=== PATIENT | male | born 1950 | race Caucasian/White ===

== ENCOUNTER → 2023-03-06 | Outpatient (CLI) | payer MEDICARE, OTHER, SELFPAY ==
--- NOTE | 2023-03-06 | PROSBIL_PTH ---
PATIENT: EVELIO WHELAN LOC: [facility] U#:[id number] AGE/SX: 73/M ROOM: RE03/06/[address]: Dr. Jaydon Garcia MD : 1950 BED: DIS: 03/06/2023 SPEC #: [id number] RECD: 03/06/23 15:00 STATUS: LISA GREENE #: [id number] LISA: 03/06/23 00:[address]: Jaydon Garcia DEPT: SURGICAL PATHOLOGY RECD BY: Richi Radford ENTERED: 03/07/23 08:54 SP TYPE: PROST BX MOON DR: Dr. Evelio Jovel MD [facility] Tissues: A - PROSTATE RIGHT B - PROSTATE RIGHT C - PROSTATE RIGHT D - PROSTATE LEFT E - PROSTATE LEFT F - PROSTATE LEFT Procedures: PROSTATE BX HEADER OPERATION: Prostate biopsy PRE-OP DIAGNOSIS: Elevated PSA TISSUE SUBMITTED: A - Right apex, B - Right mid, C - Right base, D - Left apex, E - Left mid, F - Left base MICROSCOPIC DIAGNOSIS A. Right prostate, apex, core biopsy: Prostatic adenocarcinoma. [place] grade: 4+4=8 Number of cores involved: 1/1 Proportion of tissue involved: ~75% Perineural invasion: Not identified. Greatest tumor length: 0.7 cm B. Right prostate, mid, core biopsy: Prostatic adenocarcinoma. [place] grade: 5+4=9 Number of cores involved: 2/2 Proportion of tissue involved: >95% Perineural invasion: Not identified. Greatest tumor length: 0.6 cm See comment. C. Right prostate, base, core biopsy: Prostatic adenocarcinoma. [place] grade: 4+4=8 Number of cores involved: 1/2 Proportion of tissue involved: ~10% Perineural invasion: Not identified. Greatest tumor length: 0.2 cm Focal high-grade prostatic intraepithelial neoplasia (HGPIN). See comment. D. Left prostate, apex, core biopsy: Prostatic tissue, negative for malignancy. E. Left prostate, mid, core biopsy: Prostatic tissue, negative for malignancy. Focal atrophy and mild acute and chronic inflammation. See comment. F. Left prostate, base, core biopsy: Prostatic tissue, negative for malignancy. SJ:marium 03/08/2023 COMMENT B. The specimen was fragmented during processing. C & E. Immunohistochemistry ([id number]) supports the above diagnosis. Case has been reviewed in consultation with Dr. Cornelius who concurs with the above diagnosis. IDC:AM MICROSCOPIC DESCRIPTION Slides are reviewed. GROSS DESCRIPTION A - Received is one container designated prostate, right apex. The specimen consists of one elongated fragment of light dotson-white soft tissue measuring 1.5 cm in length and 0.1 cm in diameter. The specimen is totally submitted in one cassette. B - Received is one container designated prostate, right mid. The specimen consists of two elongated fragments of light dotson-white soft tissue measuring 0.9 and 1.3 cm in length and 0.1 cm in diameter. The specimen is totally submitted in one cassette. C - Received is one container designated prostate, right base. The specimen consists of two elongated fragments of light dotson-white soft tissue measuring 0.4 and 0.8 cm in length and 0.1 cm in diameter. The specimen is totally submitted in one cassette. D - Received is one container designated prostate, left apex. The specimen consists of one elongated fragment of light dotson-white soft tissue measuring 1.5 cm in length and 0.1 cm in diameter. The specimen is totally submitted in one cassette. E - Received is one container designated prostate, left mid. The specimen consists of one elongated fragment of light dotson-white soft tissue measuring 1.5 cm in length and 0.1 cm in diameter. The specimen is totally submitted in one cassette. F - Received is one container designated prostate, left base. The specimen consists of two elongated fragments of light dotson-white soft tissue measuring 0.4 and 1.0 cm in length and 0.1 cm in diameter. The specimen is totally submitted in one cassette. / SJ:rg 03/07/2023 TC:0 [facility]: [id number]
--- NOTE | 2023-03-06 | IMM_PTH ---
PATIENT: EVELIO WHELAN LOC: [facility] U#:[id number] AGE/SX: 73/M ROOM: RE03/06/[address]: Dr. Jaydon Garcia MD : 1950 BED: DIS: 03/06/2023 SPEC #: [id number] RECD: 03/08/23 13:54 STATUS: LISA REQ #: [id number] LISA: 03/06/23 00:[address]: Jaydon Garcia DEPT: IMMUNOHISTOCHEMISTRY RECD BY: Ginny Benavides ENTERED: 03/08/23 13:55 SP TYPE: IMMUNO OTHR DR: Dr. Evelio Jovel MD Tissues: C - PROSTATE RIGHT E - PROSTATE LEFT Procedures: 34BE12 (add) P40 (add) 34BE12 (initial) PHYSICIAN & INSTITUTION [place] [id number] SPECIMEN INFORMATION: Tissue Source: C - Right prostate, base, core biopsy, E - Left prostate, mid, core biopsy Clinical Info: Elevated PSA Specimen Number: [id number] C & E CPT code: 92822, 14813 x3 METHODOLOGY: Deparaffinized sections of prefer/formalin-fixed tissue or PAP/DQ stained slides are incubated with monoclonal/polyclonal antibodies/oligonucleotide probes. Localization is made via biotin free immunoperoxidase method. Appropriate controls are performed and reacted as expected. Results on target cell population are indicated in the following table: RESULTS: ANTIBODY / CLONE RESULT Block C P40 (BC28) negative 34BE12 (34BE12) negative Block E P40 (BC28) positive 34BE12 (34BE12) positive These tests were developed and their performance characteristics determined by [facility]. They may not have been cleared or approved by the U.S. Food and Drug Administration. The FDA has determined that such clearance or approval is not necessary. The above immunohistochemical/dualISH markers are ordered and reviewed by the Pathologist. INTERPRETATION: C. Right prostate, base, core biopsy: Adenocarcinoma. E. Left prostate, mid, core biopsy: Negative for malignancy. SJ:marium 03/09/2023
== END | disposition home or self-care (01) ==
LOC: LABSPEC 16:52
PROVIDERS: PCP Family Medicine; Referring Provider Urology; Visit Provider Urology
DX: R97.20 Elevated prostate specific antigen [PSA] (principal)
CPT/HCPCS: 88305; 88341; 88342; G0416

== ENCOUNTER → 2023-03-13 | Outpatient (CLI) | payer MEDICARE, OTHER, SELFPAY ==
--- NOTE | 2023-03-13 10:28 | NM_ITS ---
CLINICAL: Male, 73 years old. ELEVATES PSA -- NEW DX PROSTATE CANCER -- NO PATIENT COMPLAINTS WHOLE BODY NUCLEAR BONE SCAN TECHNIQUE: Following the IV administration of 26.5 mCi of Tc MDP, whole body bone imaging was performed with a gamma camera following a three hour delay. COMPARISON STUDIES : NM - None. FINDINGS: There is a normal concentration of radiopharmaceutical throughout the axial and appendicular skeletal system without either a focal decrease or increase in uptake. Contracted urinary bladder. NM/Bone Scan Whole Body IMPRESSION: Normal whole body nuclear bone scan. Electronically Signed: Hussain Billy MD at 12:57 EDT ,
== END | disposition home or self-care (01) ==
LOC: NM 10:26
PROVIDERS: PCP Family Medicine; Referring Provider Urology; Visit Provider Urology
DX: R97.20 Elevated prostate specific antigen [PSA] (principal); C61 Malignant neoplasm of prostate
CPT/HCPCS: 78306; A9503

== ENCOUNTER → 2023-03-20 | Outpatient (CLI) | payer MEDICARE, OTHER, SELFPAY ==
--- NOTE | 2023-03-20 14:46 | CT_ITS ---
STUDY: CT ABDOMEN AND PELVIS WITH CONTRAST - URINARY TRACT REASON FOR EXAM: Male, 73 years old. C61 PROSTATE CA RADIATION DOSAGE (If Supplied By Facility): CTDIvol = ( 16.82 ) mGy, DLP = ( 1216.53 ) mGycm TECHNIQUE: IV 100mL Isovue-300 was administered. Transaxial images were obtained from the dome of the diaphragm to the symphysis pubis in the arterial, nephrographic and excretory phases. Multiplanar coronal and sagittal images were reformatted. Individualized Dose Optimization Techniques Were Used For This CT. COMPARISON: No prior examinations are available for comparison. FINDINGS: The visualized lung bases are unremarkable. The visualized portions of the heart are within normal limits. Coronary calcifications. Mild hepatic steatosis. No focal lesion is seen. Normal gallbladder and extrahepatic biliary system. Normal spleen. Normal pancreas. Normal bilateral adrenal glands. Normal visualized stomach. Normal caliber small bowel loops. Mild diverticulosis of the colon without evidence of acute diverticulitis. No evidence of acute appendicitis. There is diffuse atherosclerotic calcification of the abdominal aorta with elongation and tortuosity, but without a demonstrated aneurysm. No retroperitoneal adenopathy. 3.9 cm left renal cyst appears to be simple for which no further follow-up exam is needed. No evidence of hydronephrosis. Normal urinary bladder. Slightly prominent prostate. Normal abdominal wall. Degenerative changes of the spine. No demonstrated destructive bony process. CT/Abdomen/Pelvis WITH Contrast IMPRESSION: 1. No evidence of metastatic disease. 2. No focal acute inflammatory process. 3. Coronary calcifications. Electronically Signed: Meño Terrell MD at 11:59 EDT ,
[2023-03-20 15:32] LABS: CREATININE FINGERSTICK < 0.9 mg/dL (0.70-1.30); EGFR FINGERSTICK > 60.0000 mL/min (>60)
== END | disposition home or self-care (01) ==
LOC: CT 14:45
PROVIDERS: PCP Family Medicine; Referring Provider Urology; Visit Provider Urology
DX: C61 Malignant neoplasm of prostate (principal)
CPT/HCPCS: 74177; Q9967

== ENCOUNTER → 2023-05-08 | Outpatient (CLI) | payer MEDICARE, OTHER, SELFPAY ==
--- NOTE | 2023-05-08 10:52 | MRI_ITS ---
ACR Level 3 findings have been noted. An addendum which confirms receipt of the report will follow. STUDY: MR PROSTATE GLAND/ PELVIS WITH T WITHOUT CONTRAST REASON FOR EXAM: Male, 73 years old. high risk prostate cancer, eval for disease -- planning for XRTPSA scanned in paperwork TECHNIQUE: Standardized fat and water weighted pulse sequences were obtained in all 3 orthogonal planes, pre-and post contrast administration. clariscan 19ml was administered for the contrast portion of the examination. COMPARISON: PET/CT scan dated April 11, 2023. CT of abdomen and pelvis dated March 20, 2023 FINDINGS: Prostate gland volume/size: 4.99 x 4.18 x 4.09 cm in diameter, which is mildly enlarged. Anterior fibromuscular stroma: Normal. Peripheral zone: 2.06 x 1.41 cm low signal lobular malignant appearing mass with abnormal diffusion weighted signal and significant enhancement is centered in the middle two thirds regions of the right side of the peripheral zone with our bulging, and possible capsular breech. 2 small lobular intermediate to low signal nodules (measuring 1.39 cm and 1.40 cm) are also seen in the middle one third and posterior aspect of the left side of the peripheral zone. The nodule in the peripheral aspect of this all demonstrates enhancement, however the low signal nodule in the posterior aspect of the left side of the peripheral zone does not enhance as seen on image 26/40 series 11. Central zone: Heterogeneous and multinodular likely due to prostatic hyperplasia Transitional zone: Heterogeneous and multinodular likely due to prostatic hyperplasia Prostate capsule: concave bulging due to right peripheral zone mass and possible extension of a tiny focus of the mass through the capsule. The remaining aspects of the capsule are intact. Seminal vesicles: Normal Pelvic sidewall lymphadenopathy: None demonstrated Bony structures: No lytic or blastic lesions or active marrow edema. Normal urinary bladder. Normal visualized small intestine. Normal visualized colon. There is no pelvic fluid. There is no pelvic mass lesion or lymphadenopathy. Normal visualized pelvic arteries. Normal osseous structures. Normal abdominal wall. MRI/Pelvis W/WO Contrast IMPRESSION: 1. 2.06 x 1.41 cm low signal lobular malignant appearing mass with abnormal diffusion weighted signal and significant enhancement is centered in the middle two thirds regions of the right side of the peripheral zone with our bulging, and possible capsular breech. 2. PI-RADS 5: very high (clinically significant cancer is highly likely to be present) 3. 2 additional suspicious nodule seen in the left peripheral zone of the prostate gland; PI-RADS 4: high (clinically significant cancer is likely to be present) Reference information: Normal prostate tissue Benign prostatic hypertrophy cancer/tumor - low signal peripheral , transitional, and central zones malignancy appears as bright on DWI and low signal on ADC map Prostate imaging-reporting and data system (PI-RADS) PI-RADS 1: very low (clinically significant cancer is highly unlikely to be present) PI-RADS 2: low (clinically significant cancer is unlikely to be present) PI-RADS 3: intermediate (the presence of clinically significant cancer is equivocal) PI-RADS 4: high (clinically significant cancer is likely to be present) PI-RADS 5: very high (clinically significant cancer is highly likely to be present) PI-RADS X: component of exam technically inadequate or not performed Prostate malignancy distribution: Peripheral zone: 70-80% Transitional zone: 10-20% Central zone: 5% or less Electronically Signed: Nba Handley MD at 12:03 EDT Reading Location ID and State: [facility] / [place] , Service support ,
== END | disposition home or self-care (01) ==
LOC: MRI 10:50
PROVIDERS: PCP Family Medicine; Referring Provider Student in an Organized Health Care Education/Training Program; Visit Provider Student in an Organized Health Care Education/Training Program
DX: C61 Malignant neoplasm of prostate (principal)
CPT/HCPCS: 72197; A9575

== ENCOUNTER → 2024-10-23 | Outpatient (CLI) | payer MEDICARE, OTHER, SELFPAY ==
--- NOTE | 2024-10-23 14:13 | NEURO ---
NCS and/or EMG Patient Report Ordering Doctor: Wali Velazquez DATE OF SERVICE: 10/23/24 Stanley presents for electrodiagnostic testing of the left lower limb. He reports left lower extremity weakness. He also reports having similar symptoms on the right side. Electrodiagnostic findings: Left peroneal motor nerve demonstrates normal distal latency with reduced amplitude and reduced conduction velocity. Left tibial motor nerve demonstrates normal distal latency with normal amplitude and reduced conduction velocity along left tibial F?wave. Prolonged H?reflex bilaterally. Absent left sural response. Left superficial peroneal response is within normal limits. Needle EMG testing was performed in the left lower limb. All muscles tested, including the left lumbar paraspinals, showed no evidence of denervation with normal motor unit action potentials. Electrodiagnostic impression: This is an abnormal study in the left lower limb. 1. 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 2. 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 3. Would recommend correlation with the right lower limb to get a more accurate assessment for peripheral polyneuropathy. Multi [facility] Codes Neurology Neurology Interp Codes: 28164-12 Musc test done w/n test comp (interp) and 58952-71 Nrv cndj tst 5-6 studies (interp)
== END | disposition home or self-care (01) ==
LOC: PSN 11:53
PROVIDERS: PCP Family Medicine; Referring Provider Family Medicine; Visit Provider Family Medicine
DX: R29.898 Other symptoms and signs involving the musculoskeletal system (principal)
CPT/HCPCS: 95886; 95909

== ENCOUNTER → 2024-11-14 | Outpatient (CLI) | payer MEDICARE, OTHER, SELFPAY | END | disposition home or self-care (01) | LOC: SL 14:15 | PROVIDERS: PCP Family Medicine; Referring Provider Family Medicine; Visit Provider Family Medicine | DX: G47.33 Obstructive sleep apnea (adult) (pediatric) (principal) | CPT/HCPCS: 98960; G0463 ==

== ENCOUNTER → 2024-11-20 | Outpatient (CLI) | payer MEDICARE, OTHER, SELFPAY ==
--- NOTE | 2024-11-20 13:08 | NEURO ---
NCS and/or EMG Patient Report Ordering Doctor: Wali Velazquez DATE OF SERVICE: 11/20/24 Stanley presents for electrodiagnostic testing of the right lower limb. Reports numbness and weakness in the right leg. Electrodiagnostic findings: Right peroneal motor nerve demonstrates normal distal latency with reduced amplitude and reduced conduction velocity. No significant drop in conduction across the fibular head. Right peroneal F?wave. Send right sural and right superficial peroneal responses. Needle EMG testing was performed the right lower limb. All muscles tested showed no evidence of denervation with normal motor unit action potentials. Electrodiagnostic impression: This is an abnormal study. 1. Electrodiagnostic findings were reviewed in conjunction with testing performed in the left lower limb on October 23, 2024. 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 2. No electrodiagnostic evidence for lumbosacral radiculopathy Multi [facility] Codes Neurology Neurology Interp Codes: 91675-83 Musc test done w/n test comp (interp) and 65495-29 Nrv cndj tst 5-6 studies (interp)
== END | disposition home or self-care (01) ==
LOC: PSN 12:08
PROVIDERS: PCP Family Medicine; Referring Provider Family Medicine; Visit Provider Family Medicine
DX: G62.9 Polyneuropathy, unspecified (principal); R29.898 Other symptoms and signs involving the musculoskeletal system
CPT/HCPCS: 95886; 95909

== ENCOUNTER → 2024-12-12 | Outpatient (CLI) | payer MEDICARE, OTHER, SELFPAY ==
[2024-12-12 15:09] LABS: PSA,Total- Diagnostic < 0.02 ng/mL (0.00-4.00)
== END | disposition home or self-care (01) ==
LOC: LAB 11:46
PROVIDERS: PCP Family Medicine; Referring Provider Urology; Visit Provider Urology
DX: C61 Malignant neoplasm of prostate (principal)
CPT/HCPCS: 36415; 84153

== ENCOUNTER → 2025-06-16 | Outpatient (CLI) | payer MEDICARE, OTHER, SELFPAY ==
[2025-06-16 15:10] LABS: PSA,Total- Diagnostic 0.08 ng/mL (0.00-4.00)
== END | disposition home or self-care (01) ==
LOC: LAB 13:56
PROVIDERS: PCP Family Medicine; Referring Provider Urology; Visit Provider Urology
DX: C61 Malignant neoplasm of prostate (principal)
CPT/HCPCS: 36415; 84153